=== PATIENT | female | born 1990 | race Hispanic/Latino ===

== ENCOUNTER 2017-09-30 17:30 | Outpatient (CLI) | payer OTHER | END 2017-09-30 19:20 | disposition home or self-care (01) | LOC: M LDO 17:30 | DX: O26.893 Other specified pregnancy related conditions, third trimester (principal); Z3A.33 33 weeks gestation of pregnancy; O22.03 Varicose veins of lower extremity in pregnancy, third trimester; M79.662 Pain in left lower leg; Z91.013 Allergy to seafood | CPT/HCPCS: 59025 ==

== ENCOUNTER 2017-10-26 16:12 | Outpatient (CLI) | payer OTHER | END 2017-10-26 19:30 | disposition home or self-care (01) | LOC: M LDO 16:12 | DX: O36.8130 Decreased fetal movements, third trimester, not applicable or unspecified (principal); O47.03 False labor before 37 completed weeks of gestation, third trimester; Z3A.36 36 weeks gestation of pregnancy | CPT/HCPCS: 59025 ==

== ENCOUNTER 2017-11-01 08:38 | Inpatient (IN) | payer OTHER ==
[2017-11-01] MEDS ORDERED: FENTANYL 2MCG/ML ROPIVACAINE 0.2% IN 0.9% NACL 200ML IVBAG As Ordered (09:19)
[2017-11-01] MEDS ORDERED: OXYTOCIN 30 UNITS IN 0.9% NaCl 500ML IV BAG (J2590) As Ordered (09:19)
[2017-11-01 09:25] LABS: HEMATOCRIT 33.3 % (36.0-47.0); HEMOGLOBIN 11.1 g/dl (12.0-16.0); MEAN CORPUSCULAR HEMOGLOBIN 29.1 pg (27.0-33.0); MEAN CORPUSCULAR HGB CONC 33.3 g/dl (32.0-36.5); MEAN CORPUSCULAR VOLUME 87.2 fl (80.0-96.0); PLATELET COUNT, AUTOMATED 184 10^3/uL (150-450); RED BLOOD COUNT 3.82 10^6/uL (4.00-5.40); RED CELL DISTRIBUTION WIDTH 13.4 % (11.5-14.5); WHITE BLOOD COUNT 5.7 10^3/uL (4.0-10.0)
[2017-11-01] MEDS: LR 1,000 ML IV (09:32)
[2017-11-01] MEDS: LACTATED RINGER'S 1000 ML IV (09:32)
[2017-11-01] MEDS: OXYTOCIN DRIP 30 UNITS in APPROPRIATE DILUENT 1 EA IV (10:23)
[2017-11-01] MEDS ORDERED: DOCUSATE SODIUM 100 MG CAP PO (10:30)
[2017-11-01] MEDS ORDERED: ONDANSETRON 4MG/2ML VIAL (J2405) IV (10:30)
[2017-11-01] MEDS ORDERED: ANUSOL HC CREAM 30GM TOP (10:30)
[2017-11-01] MEDS ORDERED: PROMETHAZINE 25 MG TAB PO (10:30)
[2017-11-01] MEDS: PRENATAL VITAMINS CHEWABLE TABLET PO (11:49)
[2017-11-01] MEDS: DIBUCAINE 1% OINTMENT 30GM TOP (11:50)
[2017-11-01] MEDS: IBUPROFEN 800 MG TAB PO (11:50)
[2017-11-01] MEDS: ACETAMINOPHEN 500 MG TAB PO (17:27)
[2017-11-02] MEDS: IBUPROFEN 800 MG TAB PO ×2 (00:52→10:12)
[2017-11-02] MEDS: ACETAMINOPHEN 500 MG TAB PO (04:41)
[2017-11-02] MEDS: PRENATAL VITAMINS CHEWABLE TABLET PO (08:12)
== END 2017-11-02 13:20 | disposition home or self-care (01) | DRG 775 ==
LOC: M LDO 08:38 → M LDI 09:01 → M OBS 11:35
PROVIDERS: Midwife
PROC: 10E0XZZ Delivery of Products of Conception, External Approach (ICD-10-PCS; principal; 2017-11-01)
DX: O12.14 Gestational proteinuria, complicating childbirth (principal); Z37.0 Single live birth; Z3A.37 37 weeks gestation of pregnancy; Z91.013 Allergy to seafood; O69.3XX0 Labor and delivery complicated by short cord, not applicable or unspecified

== ENCOUNTER → 2018-03-02 | Outpatient (CLI) | payer OTHER | LOC: M RAD 11:34 | DX: I87.393 Chronic venous hypertension (idiopathic) with other complications of bilateral lower extremity (principal) | CPT/HCPCS: 93970 ==

== ENCOUNTER 2018-05-12 05:57 | Day surgery (SDC) | payer OTHER ==
[2018-05-12 06:53] LABS: CONTROL LINE UCG INT CTR LINE PRESENT; URINE PREG TEST NEGATIVE (NEGATIVE)
[2018-05-12] MEDS ORDERED: MIDAZOLAM INJ 2 MG/2 ML VIAL (J2250) As Ordered (06:56)
[2018-05-12] MEDS ORDERED: ROCURONIUM BROMIDE 50 MG/5 ML VIAL As Ordered (06:57)
[2018-05-12] MEDS ORDERED: LIDOCAINE 2% INJ 100 MG/5 ML SDV (FOR ANES.) As Ordered (06:57)
[2018-05-12] MEDS ORDERED: fentaNYL 100 MCG/2 ML INJECTION (J3010) As Ordered (06:57)
[2018-05-12] MEDS ORDERED: PROPOFOL 200 MG/20 ML VIAL As Ordered ×5 (06:57→07:49)
[2018-05-12] MEDS ORDERED: ONDANSETRON 4MG/2ML VIAL (J2405) As Ordered (06:59)
[2018-05-12] MEDS: LR 1,000 ML IV (07:09)
[2018-05-12] MEDS: LIDOCAINE W/EPINEPHRINE 1% 20ML VIAL As Ordered (08:01)
[2018-05-12] MEDS ORDERED: KETOROLAC 60 MG/2 ML VIAL (J1885) As Ordered (08:10)
[2018-05-12] MEDS ORDERED: MORPHINE 10 MG/ML 1ML VIAL (J2270) As Ordered (08:37)
[2018-05-12] MEDS ORDERED: PERCOCET 5MG/325MG TAB As Ordered (08:37)
[2018-05-12] MEDS ORDERED: KETOROLAC 30 MG/ML VIAL (J1885) IV (08:45)
[2018-05-12] MEDS: PERCOCET 5MG/325MG TAB PO (08:45)
[2018-05-12] MEDS ORDERED: fentaNYL 100 MCG/2 ML INJECTION (J3010) IV (08:45)
[2018-05-12] MEDS ORDERED: LR 1,000 ML IV (08:45)
[2018-05-12] MEDS: MORPHINE 10 MG/ML 1ML VIAL (J2270) IV ×2 (08:46→08:55)
== END 2018-05-12 11:25 | disposition home or self-care (01) ==
LOC: M SDC 05:57
DX: I83.812 Varicose veins of left lower extremity with pain (principal); I87.2 Venous insufficiency (chronic) (peripheral); Z79.899 Other long term (current) drug therapy; Z91.013 Allergy to seafood
CPT/HCPCS: 36475

== ENCOUNTER → 2018-05-19 | Outpatient (CLI) | payer OTHER | LOC: M RAD 09:48 | DX: I83.812 Varicose veins of left lower extremity with pain (principal) | CPT/HCPCS: 93971 ==

== ENCOUNTER → 2018-11-15 | Outpatient (CLI) | payer OTHER ==
[~2018-11-15] MED LIST: COLA100C5 PO; IBUP80TA PO; MAPA500T2 PO; PRENTAB55 PO; PRENTAB9 PO
[2018-11-15 13:29] LABS: BASO % 0.4 % (0.0-1.0); EOS # 0.1 10^3/uL (0.0-0.50); EOS % 2.1 % (0.0-3.0); HEMATOCRIT 39.8 % (36.0-47.0); HEMOGLOBIN 13.2 g/dl (12.0-15.5); LYMPH # 1.8 10^3/uL (1.5-6.5); LYMPH % 32.7 % (24.0-44.0); MEAN CORPUSCULAR HEMOGLOBIN 29.7 pg (27.0-33.0); MEAN CORPUSCULAR HGB CONC 33.2 g/dl (32.0-36.5); MEAN CORPUSCULAR VOLUME 89.4 fl (80.0-96.0); MONO # 0.5 10^3/uL (0.0-0.8); MONO % 8.4 % (0.0-5.0); NEUTROPHILS # 3.2 10^3/uL (1.8-7.7); NEUTROPHILS % 56.2 % (36.0-66.0); PLATELET COUNT, AUTOMATED 288 10^3/uL (150-450); RED BLOOD COUNT 4.45 10^6/uL (4.00-5.40); WHITE BLOOD COUNT 5.6 10^3/uL (4.0-10.0)
[2018-11-15 14:05] LABS: MALB URINE SIEMENS 8.6 MG/L; MAU/CREAT RATIO 6.8 MCG/MG (0.0-30.0)
[2018-11-15 14:19] LABS: ALBUMIN 4.1 GM/DL (3.2-5.2); ALT/SGPT 14 U/L (12-78); BILIRUBIN,TOTAL 0.4 MG/DL (0.2-1.0); BLOOD UREA NITROGEN 10 MG/DL (7-18); CALCIUM LEVEL 8.4 MG/DL (8.5-10.1); CARBON DIOXIDE LEVEL 29 MEQ/L (21-32); CHLORIDE LEVEL 104 MEQ/L (98-107); CREATININE FOR GFR 0.67 MG/DL (0.55-1.30); GLOMERULAR FILTRATION RATE > 60.0 (>60); GLUCOSE, FASTING 59 MG/DL (70-100); HCG, SERUM QUANTITATIVE < 1.0 MIU/ML; SODIUM LEVEL 140 MEQ/L (136-145); TOTAL PROTEIN 7.3 GM/DL (6.4-8.2)
[2018-11-15 14:47] LABS: HIV 1&2 SCREEN CENTAUR NEGATIVE (NEGATIVE)
[2018-11-15 16:17] LABS: INR 0.97; PARTIAL THROMBOPLASTIN TIME 37.4 SECONDS (25.4-37.6)
== END ==
LOC: M LRY 11:34
DX: Z01.818 Encounter for other preprocedural examination (principal)

== ENCOUNTER → 2021-01-20 | Outpatient (CLI) | payer SELFPAY | LOC: M LABSMTC 10:39 | PROVIDERS: ATTEND Pediatrics | DX: Z20.822 Contact with and (suspected) exposure to COVID-19 (principal) ==

== ENCOUNTER → 2021-02-23 | Outpatient (CLI) | payer SELFPAY | LOC: M LABSMTC 11:56 | PROVIDERS: ATTEND Pediatrics | DX: Z11.52 Encounter for screening for COVID-19 (principal) ==